=== PATIENT | male | born 1945 | race Caucasian/White ===

== ENCOUNTER 2021-03-26 14:31 | Outpatient (CLI) | payer MEDICARE, SELFPAY ==
--- NOTE | ~2021-03-26 | DEXA_ITS ---
Bone Density Report Name: Bharath Mullins Age: 75 Sex: Male Ethnicity: White Date of : 1945 Indication: prior fracture; Referring Provider: Tim Wnog Study: Bone densitometry was performed. Exam Date: March 26, 2021 Accession number: [id number] Bone Density: Region BMD T-score Z-score Classification AP Spine (L1-L4) 1.200 1.0 2.0 Normal Femoral Neck (Left) 0.940 0.1 1.4 Normal Total Hip (Left) 1.158 0.8 1.6 Normal Total Hip Bilateral Avg 1.132 0.7 1.5 Normal Femoral Neck (Right) 0.937 0.1 1.4 Normal Total Hip (Right) 1.106 0.5 1.3 Normal World Health Organization criteria for BMD impression classify patients as: Normal (T-score at or above -1.0), Osteopenia (T-score between -1.0 and -2.5), or Osteoporosis (T-score at or below -2.5). 10-year Fracture Risk: FRAX not reported because: All T-scores for Spine Total, Hip Total, Femoral Neck at or above -1.0 Clinical Information Provided by Patient: Has had a low trauma fracture Patient maximum height was 70 Drinks caffeinated beverages Impression: The patient has normal bone mass. The patient has risk factors, including: previous fracture. Discussion: BONE DENSITY IS ABOVE THE MINIMUM DESIRABLE LEVEL AT ALL SKELETAL SITES TESTED. This patient?s bone mineral density is above the minimum desirable level (T-score -1.0 or better) at all sites measured. The patient should follow a healthful lifestyle (good nutrition with adequate calcium and vitamin D, and appropriate weight-bearing exercise). Follow-Up: Consider repeating this study in 5 years or sooner if there is some new clinical indication. Reported by: [facility] on 03/26/2021 2:50:00 PM. Reviewed, dictated and finalized at location [facility]
== END 2021-03-26 14:32 | disposition home or self-care (01) ==
PROVIDERS: PCP Family Medicine; Visit Provider Family Medicine
DX: S92.909A Unspecified fracture of unspecified foot, initial encounter for closed fracture (principal); X58.XXXA Exposure to other specified factors, initial encounter
CPT/HCPCS: 77080

== ENCOUNTER 2021-10-22 10:34 | Outpatient (CLI) | payer MEDICARE, SELFPAY ==
--- NOTE | ~2021-10-22 | US_ITS ---
US abdomen limited DATE: 10/22/2021 11:07 INDICATION: Right upper quadrant abdominal pain for one week TECHNIQUE: Real-time imaging of liver, pancreas, gallbladder COMPARISON: 02/2006 CT abdomen FINDINGS: No hepatic or pancreatic space-occupying mass lesion is evident. Normal hepatopedal portal venous flow direction. No gallstones or gallbladder wall thickening or pericholecystic fluid collecti on. The common bile duct measures 4.5 mm, within normal range. IMPRESSION: No significant abnormality Reviewed, dictated and finalized at [facility]. Reviewed, dictated and finalized at location A. IMPRESSION: No significant abnormality
== END 2021-10-22 10:35 | disposition home or self-care (01) ==
PROVIDERS: PCP Family Medicine; Visit Provider Physician Assistant
DX: R10.11 Right upper quadrant pain (principal)
CPT/HCPCS: 76705

== ENCOUNTER 2022-03-15 09:18 | Outpatient (CLI) | payer MEDICARE, SELFPAY ==
[2022-03-15 20:54] LABS: Alanine Aminotransferase 14 U/L (6-50); Albumin Level 3.9 g/dL (3.5-5.1); Alkaline Phosphatase 52 U/L (38-126); Anion Gap 9 mmol/L (8-16); Aspartate Amino Transferase 27 U/L (17-59); Bilirubin,Total 0.8 mg/dL (0.2-1.3); Blood Urea Nitrogen 16 mg/dL (9-20); Calcium 9.2 mg/dL (8.4-10.2); Carbon Dioxide 27 mmol/L (22-30); Chloride 100 mmol/L (98-107); Cholesterol 162 mg/dL (0-200); Estimated Glomerular Filt Rate > 60; Glucose 105 mg/dL (65-110); HDL Direct 55 mg/dL; Potassium 3.8 mmol/L (3.4-5.0); Sodium 136 mmol/L (137-145); Triglycerides 51 mg/dL (<150)
[2022-03-15 21:23] LABS: Prostate Specific Antigen 1.5 ng/mL (< OR = 4.0)
[2022-03-15 21:26] LABS: LDL Cholesterol Direct 79 mg/dL
== END 2022-03-15 09:19 | disposition home or self-care (01) ==
PROVIDERS: PCP Family Medicine; Visit Provider Family Medicine
DX: I10 Essential (primary) hypertension (principal); Z12.5 Encounter for screening for malignant neoplasm of prostate; Z13.220 Encounter for screening for lipoid disorders
CPT/HCPCS: 36415; 80053; 80061; 84153; G0103